=== PATIENT | male | born 1995 | race Caucasian/White ===

== ENCOUNTER 2017-10-03 13:15 | Emergency (ER) | payer OTHER ==
[~2017-10-03] VITALS: Ht 193 cm; Wt 115.0 kg
[2017-10-03 13:42] LABS: BASOPHIL (%) 0.3 % (0-1); EOSINOPHIL (%) 0.3 % (0-5); HEMATOCRIT 45.7 % (38.0-50.0); HEMOGLOBIN 16.9 G/DL (12.5-16.6); IMMATURE GRANULOCYTE (%) 0.3 % (0.0-0.7); LYMPHOCYTE (%) 12.8 % (15-42); MCH 31.2 PG (29.0-34.0); MCV 84.5 FL (86-99); MONOCYTE (%) 5.3 % (3-12); MONOCYTE COUNT 0.4 K/uL (0-0.8); NEUTROPHIL COUNT 6.3 K/uL (1.8-6.4); PLATELET COUNT 208 K/uL (156-360); RBC DIS.WIDTH-CV 11.2 % (11.8-14.6); RBC DIS.WIDTH-SD 34.5 % (39-53); RED BLOOD COUNT 5.41 M/uL (4.00-5.50); WHITE BLOOD COUNT 7.7 K/uL (4.1-10.2)
[2017-10-03 13:51] LABS: ALBUMIN 4.9 g/dL (3.2-4.8); CHLORIDE 105 mEq/L (99-109); POTASSIUM 3.9 mEq/L (3.7-5.4); SODIUM 141 mEq/L (136-147)
[2017-10-03 13:54] LABS: GLUCOSE 114 mg/dL (70-99); TOTAL PROTEIN 7.8 g/dL (6.4-8.3)
[2017-10-03 13:55] LABS: TOTAL BILIRUBIN 0.8 mg/dL (0.0-1.0)
[2017-10-03 13:56] LABS: SERUM ETHYL ALCOHOL < 10 mg/dL
[2017-10-03 13:57] LABS: ALKALINE PHOSPHATASE 90 IU/L (3-129); CREATININE 1.1 mg/dL (0.6-1.3)
[2017-10-03 13:58] LABS: GFR ESTIMATE (CALCULATED) > 59 mL/min/ (58.99-99999); UREA NITROGEN (BUN) 13 mg/dL (9-23)
[2017-10-03 13:59] LABS: AST (GOT) 14 IU/L (2-34)
[2017-10-03 14:00] LABS: ALT (GPT) 18 IU/L (3-49)
[2017-10-03 15:14] LABS: AMPHETAMINE NEGATIVE (500 ng/mL); BARBITURATES NEGATIVE (200 ng/mL); BENZODIAZEPINES NEGATIVE (150 ng/mL); BUPRENORPHINE NEGATIVE (10 ng/mL); COCAINE NEGATIVE (150 ng/mL); METHADONE PRESUMPTIVE POSITIVE (200 ng/mL); METHAMPHETAMINE NEGATIVE (500 ng/mL); OPIATES (MORPHINE) NEGATIVE (100 ng/mL); OXYCODONE PRESUMPTIVE POSITIVE (100 ng/mL); PHENCYCLIDINE NEGATIVE (25 ng/mL); PROPOXYPHENE NEGATIVE (300 ng/mL); THC CANNABINOIDS PRESUMPTIVE POSITIVE (50 ng/mL); TRICYCLIC ANTIDEPRESSANTS NEGATIVE (300 ng/mL)
[2017-10-03 22:13] VITALS: BP 111/62
== END 2017-10-03 22:14 ==
LOC: EME 13:15
PROVIDERS: Emergency Medicine
DX: F33.1 Major depressive disorder, recurrent, moderate (principal); F11.10 Opioid abuse, uncomplicated; F12.99 Cannabis use, unspecified with unspecified cannabis-induced disorder; F17.200 Nicotine dependence, unspecified, uncomplicated
CPT/HCPCS: 80053; 84999; 85025; 90837; 99281; 99285; G0480